=== PATIENT | male | born 1970 | race Caucasian/White ===

== ENCOUNTER 2016-08-28 10:04 | Emergency (ER) | payer BC ==
--- NOTE | 2016-08-28 10:53 | ER Document Report ---
HPI - HPI Patient complains to provider of: exacerbation of chronic low back pain Onset: Other - Over a week Onset/Duration: Gradual Quality of pain: Achy, Throbbing Pain Level: 5 Context: 45-year-old male with history of intermittent low back pain. Last episode was 7 years ago. It flared up a week ago after riding a new lawnmower and and getting worse after hauling heavy buckets of stone this past Sunday. No saddle anesthesia. The pain does radiate down the posterior left leg down to his foot. It is interfering with his ability to work. He went to [facility] this morning because they injected him with Kenalog 7 years ago which improved the pain. He was told he would have to start over as a new patient and he has not made an appointment yet. He did see a urgent care provider one week ago and was given Flexeril, Medrol Dosepak, Naprosyn, tramadol which are now gone The pain persists. No fever or chills. Associated Symptoms: None Exacerbated by: Sitting - In which his job involves sitting Relieved by: Other - Laying on his right side Similar symptoms previously: Yes Recently seen / treated by doctor: Yes - ROS ROS below otherwise negative: Yes Systems Reviewed and Negative: Yes All other systems reviewed and negative - DERM Skin Color: Normal Past Medical History - General Information source: Patient - Social History Smoking Status: Unknown if Ever Smoked Frequency of alcohol use: None Drug Abuse: None Lives with: Spouse/Significant other Family History: Reviewed & Not Pertinent Patient has suicidal ideation: No Patient has homicidal ideation: No - Medical History Medical History: Negative Renal/ Medical History: Denies: Hx Peritoneal Dialysis Musculoskeltal Medical History: Reports Other - Low back pain 7 years ago, the MRI showed a mild bulging disc at the time Surgical Hx: Negative Vertical Provider Document - CONSTITUTIONAL Agree With Documented VS: Yes - INFECTION CONTROL TRAVEL OUTSIDE OF THE [place] IN LAST 30 DAYS: No - HEENT HEENT: Normocephalic - NECK Neck: Supple - RESPIRATORY Respiratory: Breath Sounds Normal, No Respiratory Distress O2 Sat by Pulse Oximetry: 99 - CARDIOVASCULAR Cardiovascular: Regular Rate, Regular Rhythm - GI/ABDOMEN Gastrointestinal: Abdomen Soft, Abdomen Non-Tender, No Organomegaly - MUSCULOSKELETAL/EXTREMETIES Musculoskeletal/Extremeties: MAEW, FROM, Tender - Left lumbar back into the left buttocks - NEURO Level of Consciousness: Awake, Alert, Appropriate Motor/Sensory: No Motor Deficit, No Sensory Deficit Deep Tendon Reflexes: 2+ - Bilateral ankle and patellar - DERM Integumentary: Warm, Dry, No Rash Course - Re-evaluation Re-evalutation: 08/28/16 12:03 Pain is down to 1/5 and he is able to walk stable. - Vital Signs Vital signs: Temp Pulse Resp BP Pulse Ox 97.3 F 116 H 18 128/97 H 99 08/28/16 10:23 08/28/16 10:23 08/28/16 10:23 08/28/16 10:23 08/28/16 10:23 Discharge - Discharge Clinical Impression: left low back pain, radiculopathy Condition: Good Disposition: HOME, SELF-CARE Instructions: Oral Narcotic Medication ([facility]), Pain Medication Injection ([facility]), Warm Packs ([facility]), Low Back Pain ([facility]), Radiculopathy ([facility]), Family Physicians / Practices Additional Instructions: warm compress avoid sitting which makes it worse to er if symptoms worsen Please complete the patient satisfaction survey if you get one, and return it.. If you do not receive a survey, then you can go to the [facility] website, [email or web address] and place your comments about your very good care. Thank you very much. It was a pleasure being your medical provider today. Prescriptions: Oxycodone HCl/Acetaminophen [Percocet 10-325 Mg Tablet] 1 each PO Q4HP PRN #20 tablet PRN Reason: Ondansetron HCl [Zofran 8 mg Tablet] 8 mg PO Q8HP PRN #30 tablet PRN Reason: Referrals: RON LEES MD [ACTIVE STAFF] - Follow up tomorrow
[2016-08-28] MEDS ORDERED: HYDROMORPHONE HCL INJ/PF 2 MG/ML AMPULE IV ONE (11:17)
[2016-08-28] MEDS ORDERED: ONDANSETRON 4 MG TAB.RAPDIS PO ONE (11:17)
[2016-08-28 12:41] VITALS: BP 131/87
== END 2016-08-28 12:41 | disposition home or self-care (01) ==
LOC: ER 10:04
DX: M54.16 Radiculopathy, lumbar region (principal); G89.29 Other chronic pain; M54.5 Low back pain
CPT/HCPCS: 99283; S0119; J1170

== ENCOUNTER → 2016-09-08 | Outpatient (CLI) | payer BC | LOC: RAD 11:15 | PROVIDERS: ATTEND Physician Assistant | DX: M54.5 Low back pain (principal); M51.26 Other intervertebral disc displacement, lumbar region | CPT/HCPCS: 72148 ==

== ENCOUNTER 2016-09-23 09:14 | Emergency (ER) | payer BC ==
--- NOTE | 2016-09-23 10:16 | ER Document Report ---
ED Medical Screen (RME) - General Chief Complaint: Leg Pain Stated Complaint: LEG PAIN Time Seen by Provider: 09/23/16 10:13 Mode of Arrival: Ambulatory Information source: Patient, Relative TRAVEL OUTSIDE OF THE [place] IN LAST 30 DAYS: No - HPI Patient complains to provider of: R leg pain Onset: This morning - pt . is status post Lumbar surgery last week -- not placed on anticoagulants post op. Yesterday, noticed swelling and pain to RLE - Related Data Allergies/Adverse Reactions: aspirin Allergy (Verified 09/23/16 09:22) bee pollen Allergy (Verified 09/23/16 09:22) Penicillins Allergy (Verified 09/23/16 09:22) Past Medical History Renal/ Medical History: Denies: Hx Peritoneal Dialysis Physical Exam - Vital signs Vitals: Temp Pulse Resp BP Pulse Ox 97.9 F 87 18 122/92 H 100 09/23/16 09:22 09/23/16 09:22 09/23/16 09:22 09/23/16 09:22 09/23/16 09:22 Course - Vital Signs Vital signs: Temp Pulse Resp BP Pulse Ox 97.9 F 87 18 122/92 H 100 09/23/16 09:22 09/23/16 09:22 09/23/16 09:22 09/23/16 09:22 09/23/16 09:22
--- NOTE | 2016-09-23 10:43 | ER Document Report ---
ED Extremity Problem, Lower - General Mode of Arrival: Ambulatory Information source: Patient TRAVEL OUTSIDE OF THE [place] IN LAST 30 DAYS: No - HPI Patient complains to provider of: Pain Location: Leg - Right Occurred: Other - 09/20/2016 Where: Home Context: Recent surgery - 09/15/2016 <JANNA RAMOS - Last Filed: 09/23/16 13:23> <KEYON AGUILA - Last Filed: 09/23/16 14:27> - General Chief Complaint: Leg Pain Stated Complaint: RIGHT LEG PAIN Time Seen by Provider: 09/23/16 10:13 Notes: Patient is a 46 y/o male, with history of lumbar discectomy 09/15/2016, presenting to the emergency department with concerns of right leg pain with associated swelling onset 09/20/2016. Patient states that prior to his surgery, he was experiencing sciatica bilaterally, but this pain is completely different. Patient describes the pain like a "maya horse." Patient denies taking any blood thinners, but states that he has taken ibuprofen as needed for pain after his surgery. Patient denies any history of blood clots, and is unsure about family history of blood clots. Patient states that his operation was performed in [place] by Dr. Bryan. (JANNA RAMOS) - Related Data Allergies/Adverse Reactions: aspirin Allergy (Verified 09/23/16 09:22) bee pollen Allergy (Verified 09/23/16 09:22) Penicillins Allergy (Verified 09/23/16 09:22) Past Medical History - General Information source: Patient, Relative - Social History Smoking Status: Never Smoker Chew tobacco use (# tins/day): No Frequency of alcohol use: None Drug Abuse: None Lives with: Spouse/Significant other Family History: Reviewed & Not Pertinent Patient has suicidal ideation: No Patient has homicidal ideation: No - Past Medical History Cardiac Medical History: Denies: Hx DVT Renal/ Medical History: Denies: Hx Peritoneal Dialysis Past Surgical History: Reports: Other - Hx Discectomy 09/15/2016 <JANNA RAMOS - Last Filed: 09/23/16 13:23> Review of Systems - Review of Systems Constitutional: No symptoms reported EENT: No symptoms reported Cardiovascular: No symptoms reported Respiratory: No symptoms reported Gastrointestinal: No symptoms reported Genitourinary: No symptoms reported Male Genitourinary: No symptoms reported Musculoskeletal: See HPI, Other - Right leg pain with swelling Skin: No symptoms reported Hematologic/Lymphatic: No symptoms reported Neurological/Psychological: No symptoms reported -: Yes All other systems reviewed and negative <JANNA RAMOS - Last Filed: 09/23/16 13:23> Physical Exam <JANNA RAMOS - Last Filed: 09/23/16 13:23> <KEYON AGUILA - Last Filed: 09/23/16 14:27> - Vital signs Vitals: Temp Pulse Resp BP Pulse Ox 97.9 F 87 18 122/92 H 100 09/23/16 09:22 09/23/16 09:22 09/23/16 09:22 09/23/16 09:22 09/23/16 09:22 - Notes Notes: GENERAL: Alert, interacts well. No acute distress. HEAD: Normocephalic, atraumatic. EYES: Pupils equal, round, and reactive to light. Extraocular movements intact. ENT: Oral mucosa moist, tongue midline. LUNGS: Clear to auscultation bilaterally, no wheezes, rales, or rhonchi. No respiratory distress. HEART: Regular rate and rhythm. No murmurs, gallops, or rubs. EXTREMITIES: Moves all 4 extremities spontaneously, strength 5/5 bilaterally. Radial and dorsalis pedis pulses 2/4 bilaterally. No cyanosis. Right leg swollen greater than left, no pitting edema, no erythema, no difference in warmth between legs. Positive Cullen Sign Right leg, negative Homans sign. NEUROLOGICAL: Alert and oriented x3. Normal speech. Biceps and patellar DTRs 2+ bilaterally. PSYCH: Normal affect, normal mood. SKIN: Warm, dry, normal turgor. No rashes or lesions noted. Well approximated, 5 cm vertical incision to the right of the lumbar spine. No erythema, no drainage, no sign of bacterial infection, mild tenderness. (JANNA RAMOS) Course - Laboratory Result Diagrams: 09/23/16 10:30 - Consults Dr. Chaparro Time consulted: 11:50 Dr. Dutton Time consulted: 12:22 Dr. Greene Time consulted: 12:33 Consulted provider: follow-up in office <JANNA RAMOS - Last Filed: 09/23/16 13:23> - Laboratory Result Diagrams: 09/23/16 10:30 <KEYON AGUILA - Last Filed: 09/23/16 14:27> - Re-evaluation Re-evalutation: 09/23/16 10:56 09/23/16 12:45 D-dimer is positive, CBC shows slight leukocytosis, platelets slightly elevated , doppler US shows acute DVT in 3 of the 4 gastroc veins. 09/23/16 12:[address] Chaparro, the partner of the neurosurgeon who performed the surgery, agrees with Lovenox and Coumadin as it is easily reversible. Discussed with Dr. Dutton who is listed as the discharge primary care physician , he is a neurologist who is happy to see the patient but does not manage Coumadin. Discussed with Dr. Greene the stratigraphy teacher on-call who came to the emergency department and spoke with patient, patient will be referred to his office for further Coumadin management. Given initial dose of Lovenox along with teaching here and prescription for Lovenox as well as Coumadin. Discharged home (KEYON AGUILA) - Vital Signs Vital signs: Temp Pulse Resp BP Pulse Ox 98.1 F 92 18 127/88 H 100 09/23/16 13:19 09/23/16 13:19 09/23/16 13:19 09/23/16 13:19 09/23/16 13:19 - Laboratory Laboratory results interpreted by me: 09/23/16 09/23/16 10:30 10:30 WBC 11.4 H Plt Count 456 H D-Dimer 2.31 H - Consults Dr. Chaparro Reason for consultation: 09/23/16 11:[address] Chaparro, Dr. Bryan's partner, regarding patient' s case. He is okay with starting the patient on Coumadin with a Lovenox bridge if needed because of its reversibility. (JANNA RAMOS) Dr. Dutton Reason for consultation: 09/23/16 12:[address] Dutton, the discharge medical clerical receptionist, left message on cell phone. 09/23/16 12:25 Dr. Dutton returned call and stated that he would be happy to follow-up with the patient, except he is actually a neurologist and does not manage Coumadin. (JANNA RAMOS) Dr. Greene Reason for consultation: 09/23/16 12:[address] Greene, stratigraphy teacher, who agrees with Lovenox and Coumadin 5 mg. He will come down to the ED to give the patient his card and follow up with the patient in his office. (JANNA RAMOS) Discharge <JANNA RAMOS - Last Filed: 09/23/16 13:23> <KEYON AGUILA - Last Filed: 09/23/16 14:27> - Discharge Clinical Impression: Acute deep vein thrombosis (DVT) of right lower extremity Qualifiers: Affected thrombotic vein of extremity: unspecified lower extremity distal vein Qualified Code(s): I82.4Z1 - Acute embolism and thrombosis of unspecified deep veins of right distal lower extremity Condition: Stable Disposition: HOME, SELF-CARE Instructions: Coumadin (warfarin) ([facility]), DVT Outpatient Treatment ([facility]) Prescriptions: Warfarin Sodium [Coumadin 5 mg Tablet] 5 mg PO QHS #30 tablet Enoxaparin Sodium [Lovenox] 15 mg SQ Q12 #10 syringe Enoxaparin Sodium [Lovenox Inj 100 mg/1 ml Disp.syrin] 100 mg SUBCUT Q12 #10 disp.syrin Referrals: EDUARD GREENE MD [ACTIVE STAFF] - Follow up in 3-5 days (Call the office to arrange follow-up appointment within the next week.) Scribe Attestation: 09/23/16 14:27 I personally performed the services described in the documentation, reviewed and edited the documentation which was dictated to the scribe in my presence, and it accurately records my words and actions. (KEYON AGUILA) Scribe Documentation - Scribe Written by Katiaibe:: Judith Alonso, 09/23/2016 1043 acting as scribe for :: Kate <JANNA RAMOS - Last Filed: 09/23/16 13:23>
[2016-09-23 10:50] LABS: ABSOLUTE EOSINOPHILS # (AUTO) 0.2 10^3/uL (0.0-0.6); ABSOLUTE MONOCYTES (AUTO) 0.9 10^3/uL (0.1-1.4); ABSOLUTE NEUT (AUTO) 7.3 10^3/uL (1.7-8.2); BASOPHILS % (AUTO) 0.3 % (0-2); EOSINOPHILS % (AUTO) 1.8 % (0-6); HEMATOCRIT 42.6 % (37.9-51.0); HEMOGLOBIN 14.4 g/dL (13.5-17.0); HGB HCT DIFFERENCE 0.6; LYMPHOCYTES % (AUTO) 26.4 % (13-45); MEAN CORPUSCULAR HEMOGLOBIN 29.8 pg (27.0-33.4); MEAN CORPUSCULAR HGB CONC 33.9 g/dL (32.0-36.0); MEAN CORPUSCULAR VOLUME 88 fl (80-97); MONOCYTES % (AUTO) 7.6 % (3-13); RED BLOOD COUNT 4.84 10^6/uL (4.35-5.55); RED CELL DISTRIBUTION WIDTH 12.3 % (11.5-14.0); SEGMENTED NEUTROPHILS % (AUTO) 63.9 % (42-78); WHITE BLOOD COUNT 11.4 10^3/uL (4.0-10.5)
[2016-09-23 11:27] LABS: PROTHROMBIN TIME 12.6 SEC (11.4-15.4)
[2016-09-23] MEDS ORDERED: ENOXAPARIN SODIUM INJ 120 MG/0.8 ML DISP.SYRIN SUBCUT SCH ×2 (12:00→22:00)
[2016-09-23] MEDS ORDERED: ENOXAPARIN SODIUM INJ 120 MG/0.8 ML DISP.SYRIN SUBCUT ONE (13:00)
[2016-09-23 13:32] VITALS: BP 127/88
== END 2016-09-23 13:30 | disposition home or self-care (01) ==
LOC: ER 09:14
DX: I82.4Z1 Acute embolism and thrombosis of unspecified deep veins of right distal lower extremity (principal); M79.604 Pain in right leg; D72.829 Elevated white blood cell count, unspecified; Z98.890 Other specified postprocedural states; Z88.6 Allergy status to analgesic agent; Z91.030 Bee allergy status; Z88.0 Allergy status to penicillin
CPT/HCPCS: 99284; 96372; 36415; 85025; 85610; 85379; 93971; J1650